=== PATIENT | female | born 1965 | race Caucasian/White ===

== ENCOUNTER → 2023-05-14 | Outpatient (CLI) | payer OTHER ==
[~2023-05-14] MED LIST: AMOX CLAV
== END | disposition home or self-care (01) ==
LOC: RAD 16:02
PROVIDERS: ATTEND Specialist
DX: M25.562 Pain in left knee (principal); M25.561 Pain in right knee

== ENCOUNTER 2023-05-23 08:11 | Outpatient (CLI) | payer OTHER | END 2023-05-23 08:22 | disposition home or self-care (01) | LOC: MAMO-SONO 08:11 | PROVIDERS: ATTEND Radiology Diagnostic Radiology | DX: Z12.31 Encounter for screening mammogram for malignant neoplasm of breast (principal); N60.11 Diffuse cystic mastopathy of right breast ==

== ENCOUNTER 2024-05-27 10:37 | Outpatient (CLI) | payer OTHER | END 2024-05-27 10:53 | disposition home or self-care (01) | LOC: MAMO-SONO 10:37 | PROVIDERS: ATTEND Surgery | DX: N60.11 Diffuse cystic mastopathy of right breast (principal); N60.12 Diffuse cystic mastopathy of left breast ==